=== PATIENT | female | born 1940 | race Caucasian/White ===

== ENCOUNTER 2022-09-03 18:10 | Emergency (ER) | payer MEDICARE, BC ==
[2022-09-03 19:12] LABS: ANION GAP 15.2 meq/L (7-15); CHLORIDE,CL 95 mmol/L (98-107); ESTIMATED GFR 54 mL/min (>=60); SODIUM,NA 128 mmol/L (136-145)
[2022-09-03 19:22] LABS: CORONAVIRUS COVID-19 NAA NEGATIVE (NEGATIVE); RESPIRATORY SYNCYTIAL VIR NAA NEGATIVE (NEGATIVE)
[2022-09-03] MEDS ORDERED: Iopamidol 755 Mg/ML 100 ML Bottle IVPUSH ONE (19:48)
[2022-09-03] MEDS ORDERED: Ondansetron 4 MG/2 ML SDV IVPUSH ONE (20:30)
[2022-09-03] MEDS ORDERED: Furosemide 40 MG/4 ML VIAL IVPUSH ONE (21:13)
[2022-09-03] MEDS ORDERED: Heparin Sodium 5,000 Units/ML Vial IVPUSH ONE (21:13)
[2022-09-03] MEDS ORDERED: Aspirin 81 MG Tab.Chew PO ONE (21:13)
[2022-09-03] MEDS ORDERED: Heparin Sodium/0.45% NaCl 500 ML IV SCH (21:15)
[2022-09-03 22:03] VITALS: PULSE 50
[2022-09-03 22:06] VITALS: BP 187/49
== END 2022-09-03 21:43 ==
LOC: LL.ED 18:10
DX: I21.4 Non-ST elevation (NSTEMI) myocardial infarction (principal); I11.0 Hypertensive heart disease with heart failure; I50.9 Heart failure, unspecified; E11.9 Type 2 diabetes mellitus without complications; I25.10 Atherosclerotic heart disease of native coronary artery without angina pectoris; E78.00 Pure hypercholesterolemia, unspecified; Z79.899 Other long term (current) drug therapy; Z79.4 Long term (current) use of insulin; Z20.822 Contact with and (suspected) exposure to COVID-19
CPT/HCPCS: 0241U; 36415; 71046; 71275; 74019; 80053; 81001; 82150; 82550; 82947; 83690; 83880; 84484; 85025; 85379; 86140; 93005; 93010; 96374; 96375; 99285; 99285-25; A9270-GY; J1644; J1940; J2405; Q9967

== ENCOUNTER 2023-11-04 16:43 | Emergency (ER) | payer OTHER, MEDICARE, BC ==
[2023-11-04] MEDS ORDERED: Sodium Chloride 0.9% 10 ML Syringe FLUSH PRN (16:45)
[2023-11-04 16:57] LABS: EOSINOPHILS ABSOLUTE AUTO 0.04 K/uL (0.00-0.50); EOSINOPHILS PERCENT AUTO 0.9 % (0.0-5.0); HEMOGLOBIN 13.8 g/dL (11.7-15.5); LYMPHOCYTES ABSOLUTE AUTO 1.33 K/uL (0.50-3.50); LYMPHOCYTES PERCENT AUTO 31.3 % (10.0-50.0); MEAN CORPUSCULAR HEMOGLOBIN 32.8 pg (28.2-33.3); MEAN CORPUSCULAR HGB CONC 34.5 g/dL (31.7-36.0); MONOCYTES ABSOLUTE AUTO 0.45 K/uL (0.00-1.00); MONOCYTES PERCENT AUTO 10.6 % (2.0-14.0); NEUTROPHILS ABSOLUTE AUTO 2.43 K/uL (1.40-7.00); NEUTROPHILS PERCENT AUTO 57.2 % (45.0-80.0); RED BLOOD CELL COUNT 4.21 M/uL (3.77-5.09); RED CELL DISTRIBUTION WIDTH 13.4 % (11.2-14.1); WHITE BLOOD CELL COUNT,WBC 4.3 K/uL (4.0-10.2)
[2023-11-04 17:02] LABS: PLATELET COUNT,PLT 90 K/uL (150-350)
[2023-11-04 17:12] LABS: BLOOD UREA NITROGEN,BUN 17 mg/dL (7-18); CALCIUM 8.8 mg/dL (8.5-10.1); CARBON DIOXIDE,CO2 26.1 mmol/L (21.0-32.0); CHLORIDE,CL 103 mmol/L (98-107); CREATININE 0.83 mg/dL (0.51-1.17); GLUCOSE RANDOM 174 mg/dL (70-99); POTASSIUM,K 4.5 mmol/L (3.5-5.1); SODIUM,NA 138 mmol/L (136-145)
[2023-11-04 17:14] LABS: ANION GAP 13.4 meq/L (7-15); ESTIMATED GFR 70 mL/min (>=60); ETHANOL BLOOD MEDICAL < 0.000 g/dL (0.000-0.080)
== END 2023-11-04 18:35 | disposition home or self-care (01) ==
LOC: LL.ED 16:43
DX: S50.02XA Contusion of left elbow, initial encounter (principal); I10 Essential (primary) hypertension; I25.10 Atherosclerotic heart disease of native coronary artery without angina pectoris; E78.00 Pure hypercholesterolemia, unspecified; E11.9 Type 2 diabetes mellitus without complications; K21.9 Gastro-esophageal reflux disease without esophagitis; Z79.84 Long term (current) use of oral hypoglycemic drugs; Z79.899 Other long term (current) drug therapy; Z88.0 Allergy status to penicillin; Z88.8 Allergy status to other drugs, medicaments and biological substances; V89.2XXA Person injured in unspecified motor-vehicle accident, traffic, initial encounter; Y92.410 Unspecified street and highway as the place of occurrence of the external cause
CPT/HCPCS: 36415; 70450; 71045; 72125; 72170; 73070-LT; 80048; 80307; 85025; 93005; 99284

== ENCOUNTER 2025-01-01 19:21 | Emergency (ER) | payer MEDICARE, BC ==
[2025-01-01] MEDS ORDERED: Naloxone 0.4 MG/ML SDV IVPUSH PRN (19:36)
[2025-01-01 19:51] LABS: BASOPHILS ABSOLUTE AUTO 0.01 K/uL (0.00-0.20); BASOPHILS PERCENT AUTO 0.1 % (0.0-2.0); EOSINOPHILS ABSOLUTE AUTO 0.03 K/uL (0.00-0.50); EOSINOPHILS PERCENT AUTO 0.4 % (0.0-5.0); IMMATURE GRAN ABSOLUTE AUTO 0.02 10^3/uL (0.00-0.04); IMMATURE GRAN PERCENT AUTO 0.3 % (0.0-0.4); LYMPHOCYTES ABSOLUTE AUTO 0.99 K/uL (0.50-3.50); LYMPHOCYTES PERCENT AUTO 13.3 % (10.0-50.0); MONOCYTES ABSOLUTE AUTO 0.54 K/uL (0.00-1.00); MONOCYTES PERCENT AUTO 7.2 % (2.0-14.0); NEUTROPHILS ABSOLUTE AUTO 5.87 K/uL (1.40-7.00); NEUTROPHILS PERCENT AUTO 78.7 % (45.0-80.0); PLATELET COUNT,PLT 85 K/uL (150-350); RED BLOOD CELL COUNT 3.96 M/uL (3.77-5.09); RED CELL DISTRIBUTION WIDTH 12.7 % (11.2-14.1); WHITE BLOOD CELL COUNT,WBC 7.5 K/uL (4.0-10.2)
[2025-01-01 19:55] LABS: ALANINE AMINOTRANSFERASE,ALT 26.0 U/L (12-78); ASPARTATE AMNIOTRANSFERASE,AST 28.0 U/L (15-37); BILIRUBIN TOTAL 0.8 mg/dL (0.2-1.0); BLOOD UREA NITROGEN,BUN 14.0 mg/dL (7-18); CARBON DIOXIDE,CO2 25.2 mmol/L (21.0-32.0); CHLORIDE,CL 108.0 mmol/L (98-107); CREATININE 0.89 mg/dL (0.51-1.17); EST CRCL DRUG DOSING (CG) 47.47 mL/min; ESTIMATED GFR 64.0 mL/min (>=60); GLUCOSE RANDOM 172.0 mg/dL (70-99); POTASSIUM,K 3.8 mmol/L (3.5-5.1); PROTEIN TOTAL,TP 6.6 g/dL (6.4-8.2); SODIUM,NA 144.0 mmol/L (136-145)
[2025-01-01 20:40] VITALS: PULSE 94
[2025-01-01 21:05] VITALS: BP 139/60
[2025-01-01] MEDS: Ondansetron 4 MG/2 ML SDV IVPUSH ONE (21:59)
== END 2025-01-01 21:18 ==
LOC: LL.ED 19:21
DX: S72.142A Displaced intertrochanteric fracture of left femur, initial encounter for closed fracture (principal); I10 Essential (primary) hypertension; M19.90 Unspecified osteoarthritis, unspecified site; E78.00 Pure hypercholesterolemia, unspecified; E11.9 Type 2 diabetes mellitus without complications; Z88.0 Allergy status to penicillin; Z88.8 Allergy status to other drugs, medicaments and biological substances; Z79.82 Long term (current) use of aspirin; Z79.4 Long term (current) use of insulin; Z79.899 Other long term (current) drug therapy; W01.198A Fall on same level from slipping, tripping and stumbling with subsequent striking against other object, initial encounter
CPT/HCPCS: 36415; 51702; 80053; 83735; 85025; 96361; 96374; 96375; 96376; 99284; 99284-25; J1171; J2270; J7040